=== PATIENT | male | born 1955 | race Asian ===

== ENCOUNTER → 2018-02-01 09:13 | Outpatient (CLI) | payer OTHER, SELFPAY ==
[2018-02-01 13:11] LABS: PSA,Total - Annual Screen 1.05 ng/mL (0.00-4.00)
[2018-02-02 15:12] LABS: Hep C Antibodies <0.1 s/co ratio (0.0-0.9)
== END ==
PROVIDERS: Family Provider Family Medicine Geriatric Medicine; PCP Family Medicine Geriatric Medicine; Visit Provider Family Medicine Geriatric Medicine
DX: I10 Essential (primary) hypertension (principal); Z12.5 Encounter for screening for malignant neoplasm of prostate; Z13.89 Encounter for screening for other disorder
CPT/HCPCS: 36415; 84153; 86803; G0103

== ENCOUNTER → 2018-02-18 15:07 | Outpatient (CLI) | payer OTHER, SELFPAY | PROVIDERS: Family Provider Family Medicine Geriatric Medicine; PCP Family Medicine Geriatric Medicine; Visit Provider Family Medicine Geriatric Medicine | DX: M81.0 Age-related osteoporosis without current pathological fracture (principal) | CPT/HCPCS: 77080 ==

== ENCOUNTER → 2019-01-31 09:00 | Outpatient (CLI) | payer OTHER, SELFPAY ==
[2019-02-01 10:51] LABS: PSA,Total - Annual Screen 1.42 ng/mL (0.00-4.00)
== END ==
PROVIDERS: Family Provider Family Medicine Geriatric Medicine; PCP Family Medicine Geriatric Medicine; Visit Provider Family Medicine Geriatric Medicine
DX: Z12.5 Encounter for screening for malignant neoplasm of prostate (principal)
CPT/HCPCS: 36415; 84153; G0103

== ENCOUNTER 2019-06-03 08:00 | Outpatient (RCR) | payer OTHER, SELFPAY ==
--- NOTE | 2019-06-06 19:16 | DS.PCM_ITS ---
Massage Therapy Discharge Summary: Discharge Date: 06/06/2019 Cholo was seen for a massotherapy evaluation on 02/08/2019 with the diagnosis of neck and low back pain. He was treated with Four sessions of massage therapy consisting of moderate to deep pressure soft tissue techniques, myofascial release and trigger point compression to his cervical, thoracic, lower back, upper extremities and lower extremities. Cholo responded well to the therapy by reporting decreased tension and pain throughout his head, neck, shoulders, lower back and hips. His goals for therapy were met throughout the treatment sessions. At this time this patient is being discharged from our care at [facility] facility.
== END 2019-06-03 19:00 | disposition home or self-care (01) ==
LOC: MASS 08:00
PROVIDERS: Family Provider Family Medicine Geriatric Medicine; PCP Family Medicine Geriatric Medicine; Referring Provider Family Medicine Geriatric Medicine; Visit Provider Family Medicine Geriatric Medicine
DX: M54.5 Low back pain (principal)
CPT/HCPCS: 97124

== ENCOUNTER → 2019-09-13 12:23 | Outpatient (CLI) | payer OTHER, SELFPAY ==
[2019-09-13 14:02] LABS: Anion Gap 6 (5-15); BUN 12 mg/dL (7-18); BUN/Creat Ratio 17.3 RATIO (10-20); Chloride 96 mmol/L (98-107); Creatinine, Serum 0.69 mg/dL (0.70-1.30); EST Glomerular Filtration Rate 122 mL/min (>60); Est Glom Filt Rate - Afr Amer 148 mL/min (>60); Glucose 78 mg/dL (74-106); Potassium 3.8 mmol/L (3.5-5.1); Sodium Level 133 mmol/L (136-145)
== END ==
PROVIDERS: PCP Family Medicine Geriatric Medicine; Visit Provider Family Medicine Geriatric Medicine
DX: I10 Essential (primary) hypertension (principal)
CPT/HCPCS: 36415; 80048

== ENCOUNTER → 2020-01-31 11:11 | Outpatient (CLI) | payer OTHER, SELFPAY ==
[2020-01-31 13:15] LABS: PSA,Total - Annual Screen 1.25 ng/mL (0.00-4.00); Thyroid Stim Hormone (TSH) 0.89 uIU/mL (0.358-3.74)
== END ==
PROVIDERS: PCP Family Medicine Geriatric Medicine; Visit Provider Family Medicine Geriatric Medicine
DX: I10 Essential (primary) hypertension (principal); Z12.5 Encounter for screening for malignant neoplasm of prostate
CPT/HCPCS: 36415; 80053; 84153; 84443; G0103

== ENCOUNTER → 2020-02-29 16:48 | Outpatient (CLI) | payer OTHER, SELFPAY ==
[2020-02-29 16:15] VITALS: BMI 19.5
--- NOTE | 2020-02-29 16:50 | EKG12_ITS ---
Test Reason : NEW DR LAWTON Blood Pressure : / mmHG Vent. Rate : 052 BPM Atrial Rate : 052 BPM P-R Int : 162 ms QRS Dur : 094 ms QT Int : 424 ms P-R-T Axes : 056 057 048 degrees QTc Int : 394 ms Sinus bradycardia Otherwise normal ECG Confirmed by SALEEM SELF, ARSENIO ([id number]), international editorial producer CARRIE LANDA ([id number]) on 03/01/2020 10:58:16 AM Referred By: Arsenio Lawton Confirmed By:ARSENIO LAWTON MD
== END ==
PROVIDERS: PCP Family Medicine Geriatric Medicine; Referring Provider Internal Medicine Cardiovascular Disease; Visit Provider Internal Medicine Cardiovascular Disease
DX: H81.10 Benign paroxysmal vertigo, unspecified ear (principal); I10 Essential (primary) hypertension; I49.1 Atrial premature depolarization
CPT/HCPCS: 93005

== ENCOUNTER → 2020-03-08 14:05 | Outpatient (CLI) | payer OTHER, SELFPAY ==
[2020-02-29 16:15] VITALS: BMI 19.5
== END ==
PROVIDERS: PCP Family Medicine Geriatric Medicine; Referring Provider Internal Medicine Cardiovascular Disease; Visit Provider Internal Medicine Cardiovascular Disease
DX: I49.1 Atrial premature depolarization (principal); I10 Essential (primary) hypertension
CPT/HCPCS: 93225; 93226

== ENCOUNTER → 2020-03-12 10:53 | Outpatient (CLI) | payer OTHER, SELFPAY ==
[2020-02-29 16:15] VITALS: BMI 19.5
--- NOTE | 2020-03-12 10:53 | ECHOD_ITS ---
Reason For Study: ARRHYTHMIA Procedure This was a 2D Doppler, Color Flow transthoracic echocardiogram. Exam performed in department. Left Ventricle Normal LV size. Left ventricular systolic function is normal. The estimated ejection fraction is 60 %. No evidence for diastolic dysfunction. No regional wall motion abnormalities noted. Right Ventricle Normal RV size. Normal systolic function. Atria Normal left atrium. Normal right atrium. Mitral Valve Normal mitral valve. Tricuspid Valve Normal tricuspid valve. Mild (1+) tricuspid valve insufficiency. Pulmonary artery systolic pressure is 26 mmHg. Aortic Valve Trisinus/trileaflet aortic valve. Mild focal aortic valve calcification. Mild (1+) aortic valve insufficiency. Pulmonic Valve Normal pulmonic valve. Great Vessels Mildly dilated aortic root. The pulmonary artery is normal size. Normal inferior vena cava. Pericardium/Pleural No pericardial effusion. MMode/2D Measurements & Calculations LVIDd: 4.1 cm IVSd: 0.92 cm LVOT diam: 2.0 cm LVIDs: 2.7 cm LVPWd: 0.86 cm LVOT area: 3.0 cm2 RVDd: 3.7 cm FS: 35.4 % Ao root diam: 4.1 cm LAV(MOD-bp): 38.9 ml LA A4 area: 14.7 cm2 LAV(MOD-bp) Indexed: 25.2 ml/m2 LAV(MOD-sp2): 45.9 ml LAV(MOD-sp4): 32.6 ml LA dimension(2D): 2.4 cm RA A4 area: 11.8 cm2 Time Measurements MV dec time: 0.21 sec Doppler Measurements & Calculations MV E max mu: 88.4 cm/sec Lat Peak E' Mu: 10.2 cm/sec Med Peak E' Mu: 5.0 cm/sec MV A max mu: 59.0 cm/sec E/E' lat: 8.7 E/E' med: 17.6 MV E/A: 1.5 MV V2 max: 81.3 cm/sec Ao V2 max: 112.3 cm/sec AI max mu: 415.7 cm/sec MV max P.6 mmHg Ao max P.1 mmHg AI max P.4 mmHg MV V2 mean: 48.1 cm/sec Ao V2 mean: 81.2 cm/sec AI dec slope: 172.1 cm/sec2 MV mean P.0 mmHg Ao mean P.9 mmHg AI P1/2t: 707.6 msec MV V2 VTI: 25.6 cm Ao V2 VTI: 24.3 cm MVA(VTI): 2.2 cm2 ENRIQUETA(I,D): 2.4 cm2 ENRIQUETA(V,D): 2.3 cm2 LV V1 max: 87.6 cm/sec SV(LVOT): 57.3 ml PA V2 max: 81.7 cm/sec LV V1 max P.1 mmHg LV V1 mean P.5 mmHg LV V1 mean: 56.9 cm/sec LV V1 VTI: 19.2 cm PI end-d mu: 84.9 cm/sec TR max mu: 233.9 cm/sec TR max P.3 mmHg Interpretation Summary Normal LV size. Left ventricular systolic function is normal. The estimated ejection fraction is 60 %. No evidence for diastolic dysfunction. Mild focal aortic valve calcification. Mild (1+) aortic valve insufficiency. Ordering Physician: Arsenio Lawton Referring Physician: SOPHIE MORENO Performed By: Renetta Warner
== END ==
PROVIDERS: PCP Family Medicine Geriatric Medicine; Referring Provider Internal Medicine Cardiovascular Disease; Visit Provider Internal Medicine Cardiovascular Disease
DX: I49.1 Atrial premature depolarization (principal)
CPT/HCPCS: 93306

== ENCOUNTER 2020-04-05 11:45 | Outpatient (RCR) | payer OTHER, SELFPAY ==
--- NOTE | 2019-08-01 15:02 | MASS.EVAL ---
Massage Therapy Evaluation: Initial Evaluation Date: 07/29/2019 SUBJECTIVE: Cholo is a 64 year old male who was referred to the [facility] facility for a massotherapy evaluation by Dr. Mike with the diagnosis of low back pain. Cholo presents today with the symptoms of pain and tension in his neck shoulders and back. OBJECTIVE: Upon observation Cholo has some posture issues with his head and shoulders forward from the neutral position in sitting and standing. After examination and palpation I found Cholo to have high muscle tension with tenderness and myofascial restrictions in his sub occipitals, levator scapulae, trapezius, rhomboids, scalenes, and thoracic paraspinals. His QL?s, lumbar paraspinals, piriformis, glute medius, glute minimus, quads, hamstrings and calves all had high tension with fascial restrictions and tender points. His right gastroc/soleus muscles were tender with ropey fibers in the central/medial aspect. The first treatment consisted of a one hour massage to his legs, hips, back and neck with myofascial release, muscle stripping, trigger point compression techniques. ASSESSMENT: I feel that Cholo is a good candidate for massotherapy at this time. He had a favorable response to the first treatment with reduction in his muscle aches, pain and tension. He also had improvement in his cervical flexibility and low back flexibility. PLAN: The plan of care was reviewed with the patient. The patient is to be seen on an as needed basis for a total of ten sessions with the recommendation of once every month for a one hour treatment.
--- NOTE | 2020-06-06 17:03 | MASS.DISCH ---
Massage Therapy Discharge Summary: Discharge Date: 06/06/2020 Cholo was seen for a massotherapy evaluation on 07/29/2019 with the diagnosis of low back pain. He was treated with eight sessions of massage therapy consisting of deep pressure soft tissue techniques, myofascial release and trigger point compression to his cervical, thoracic, lower back, lower extremities and hips. Cholo responded well to the therapy by reporting decreased tension and pain throughout his neck, shoulders, lower back and hips. His goals for therapy were met throughout the treatment sessions. At this time this patient is being discharged from our care at [facility] facility.
== END 2020-04-05 19:00 | disposition home or self-care (01) ==
LOC: MASS 11:45
PROVIDERS: Family Provider Family Medicine Geriatric Medicine; PCP Family Medicine Geriatric Medicine; Visit Provider Family Medicine Geriatric Medicine
DX: M54.5 Low back pain (principal)
CPT/HCPCS: 97124

== ENCOUNTER → 2021-02-01 08:55 | Outpatient (CLI) | payer OTHER, SELFPAY ==
[2020-02-29 16:15] VITALS: BMI 19.5
[2021-02-01 11:50] LABS: PSA,Total - Annual Screen 1.51 ng/mL (0.00-4.00)
== END ==
PROVIDERS: PCP Family Medicine Geriatric Medicine; Visit Provider Family Medicine Geriatric Medicine
DX: I10 Essential (primary) hypertension (principal); Z12.5 Encounter for screening for malignant neoplasm of prostate
CPT/HCPCS: 36415; 84153; G0103

== ENCOUNTER → 2021-04-19 09:43 | Outpatient (CLI) | payer OTHER, SELFPAY ==
--- NOTE | 2021-04-19 09:49 | CT_ITS ---
STUDY: CT CHEST WITHOUT CONTRAST REASON FOR EXAM: Male, 66 years old. LIPID STATUS. RADIATION DOSAGE (If Supplied By Facility): CTDIvol = ( 12.19 ) mGy, DLP = ( 195.04 ) mGycm TECHNIQUE: Transaxial imaging was performed without the administration of intravenous contrast material. Cardiac over read examination. Individualized dose optimization techniques were used for this CT. COMPARISON: None. FINDINGS: The lungs are normal. There is no demonstrated pleural abnormality. There are calcifications of the coronary arteries. Normal mediastinum. Normal hilar regions. Normal unenhanced pulmonary arteries. There is atherosclerotic calcification of the aortic arch . There is no demonstrated abnormality of the visualized upper abdomen. CT/Limited Chest CT w/CCTA IMPRESSION: Coronary calcification. The lungs are clear. Electronically Signed: Jacob Sibley MD at 10:26 EDT , Service support ,
[2021-04-19 09:55] VITALS: BP 153/80; PULSE 58; RESP 14; TEMP 36.7; O2SAT 100; BMI 19.7
--- NOTE | 2021-04-19 14:53 | CA.SCORE ---
Calcium Scoring Coronary Calcium Scoring: High-resolution Computed Tomographic imaging of the chest was performed on [04/19/2021], with particular attention paid to the coronary arteries. Images from the examination were analyzed for the presence and extent of coronary artery calcification , using coronary calcium quantification software. The patient tolerated the procedure well and there were no complications. The results of the coronary calcification analysis are provided below. Left main score 11.4 Left anterior descending artery 43.8 Left circumflex artery score 0 Right coronary artery score 0 Total Agatston score 55.2 [address] the patient between the 25th and 50th percentile ranking. The above is suggestive of mild atherosclerosis plaquing noted. Calcium Scoring Interpretation: 0 No identifiable atherosclerotic plaque. Very low cardiovascular disease risk. <5% chance of presence coronary artery disease A Negative Examination 1-10 Minimal Plaque burden. Significant coronary artery disease very unlikely. 11-100 Mild plaque burden. Likely mild or minimal coronary atherosclerosis. 101-400 Moderate plaque burden Moderate non-obstructive coronary artery disease highly likely. Over 400 Extensive plaque burden. High likelihood of at least one significant coronary stenosis (>50% diameter)
== END ==
PROVIDERS: PCP Family Medicine Geriatric Medicine; Referring Provider Internal Medicine Cardiovascular Disease; Visit Provider Internal Medicine Cardiovascular Disease
DX: I10 Essential (primary) hypertension (principal)
CPT/HCPCS: 75571; 76380

== ENCOUNTER → 2021-05-01 16:27 | Outpatient (CLI) | payer OTHER, SELFPAY | PROVIDERS: PCP Family Medicine Geriatric Medicine; Visit Provider Family Medicine Geriatric Medicine | DX: R68.83 Chills (without fever) (principal) | CPT/HCPCS: 87633; 87635; U0005; U0003 ==

== ENCOUNTER 2021-05-17 08:00 | Outpatient (RCR) | payer OTHER, SELFPAY ==
[2020-02-29 16:15] VITALS: BMI 19.5
--- NOTE | 2020-07-27 12:12 | MASS.EVAL ---
Massage Therapy Evaluation: Initial Evaluation Date: 07/27/2020 SUBJECTIVE: Cholo is a 51 year old male who was referred to the [facility] facility for a massotherapy evaluation by Dr. Mike with the diagnosis of low back pain. Cholo presents today with the symptoms of pain and tension in his neck, shoulders, and back. OBJECTIVE: After examination and palpation I found Cholo to have high muscle tension with tenderness and myofascial restrictions in his sub occipitals, levator scapulae, trapezius, rhomboids, scalenes, and paraspinals muscle group. His QL?s, lumbar paraspinals, piriformis, glute medius, glute minimus and hamstrings all had high tension with fascial restrictions and tender points. The first treatment consisted of a one hour massage to his full body with myofascial release, muscle stripping, trigger point compression techniques. ASSESSMENT: I feel that Cholo is a good candidate for massotherapy at this time. He had a favorable response to the first treatment with reduction in his muscle aches, pain and tension. He also had improvement in his cervical flexibility and low back flexibility. PLAN: The plan of care was reviewed with the patient. The patient is to be seen on an as needed basis for a total of ten sessions with the recommendation of once every month for a one hour treatment.
--- NOTE | 2021-06-19 15:17 | MASS.DISCH ---
Massage Therapy Discharge Summary: Discharge Date: 06/19/2021 Cholo was seen for a massotherapy evaluation on 07/27/2020 with the diagnosis of low back pain. He was treated with four sessions of massage therapy consisting of deep pressure soft tissue techniques, myofascial release and trigger point compression to his cervical, thoracic, lower back and hips. Cholo responded well to the therapy by reporting decreased tension and pain throughout his neck, shoulders, lower back, lower extremities and hips. His goals for therapy were met throughout the treatment sessions. At this time this patient is being discharged from our care at [facility] facility.
== END 2021-05-17 19:00 | disposition home or self-care (01) ==
LOC: MASS 08:00
PROVIDERS: PCP Family Medicine Geriatric Medicine; Referring Provider Family Medicine Geriatric Medicine; Visit Provider Family Medicine Geriatric Medicine
DX: M54.50 Low back pain, unspecified (principal)
CPT/HCPCS: 97124

== ENCOUNTER 2021-08-21 14:33 | Outpatient (CLI) | payer OTHER, SELFPAY ==
[2021-08-21 14:59] VITALS: BP 160/86; PULSE 68; RESP 16; TEMP 36.6; O2SAT 99; BMI 19.7
[2021-08-21] MEDS: 0.9% Saline Lock 10 ML Syringe IV (15:03)
[2021-08-21 15:33] VITALS: BP 132/84; PULSE 59; RESP 16; TEMP 36.6; O2SAT 100
[2021-08-21 16:27] VITALS: BP 139/83; PULSE 60; RESP 16; TEMP 36.4; O2SAT 100
== END 2021-08-21 23:59 | disposition home or self-care (01) ==
LOC: MS3OUT 14:33 → MS3 14:34
PROVIDERS: PCP Family Medicine Geriatric Medicine; Referring Provider Nurse Practitioner Adult Health; Visit Provider Nurse Practitioner Adult Health
DX: Z23 Encounter for immunization (principal); U07.1 COVID-19; I10 Essential (primary) hypertension
CPT/HCPCS: J7050; M0247; A4216; Q0247

== ENCOUNTER 2021-09-03 16:25 | Outpatient (CLI) | payer OTHER, SELFPAY | END 2021-09-03 23:59 | disposition home or self-care (01) | LOC: POLAB3 16:26 | PROVIDERS: PCP Family Medicine Geriatric Medicine; Visit Provider Family Medicine Geriatric Medicine | DX: N39.0 Urinary tract infection, site not specified (principal) | CPT/HCPCS: 87086 ==

== ENCOUNTER 2021-09-24 08:32 | Outpatient (CLI) | payer OTHER, SELFPAY ==
--- NOTE | 2021-09-24 08:47 | BD_ITS ---
STUDY: DUAL ENERGY X-RAY ABSORPTIOMETRY / DXA REASON FOR EXAM: Male, 66 years old. M810 TECHNIQUE: Bone Mineral Density (BMD) measurements of lumbar spine and bilateral hips were obtained. COMPARISON: Comparison is made with prior study dated 02/18/2018. FINDINGS: Lumbar Spine (L1-L4): g/cm2 (0.834) / T-score (-2.1) / Z-score (-1.4) Findings are suggestive of osteopenia with a high fracture risk. Left Femur Total: g/cm2 (0.715) / T-score (-2.1) / Z-score (-1.6) Left Femoral Neck: g/cm2 (0.594) / T-score (-2.5) / Z-score (-1.4) Right Femur Total: g/cm2 (0.754) / T-score (-1.8) / Z-score (-1.3) Right Femoral Neck: g/cm2 (0.602) / T-score (-2.4) / Z-score (-1.4) The T-Scores on the most recent prior examination were: Lumbar Spine (L1-L4): There has been improvement of bone density since the previous examination. Left Femur Total: which represents a worsening of 0.3%. Right Femur Total: which represents an improvement of 2.5%. BD/Dexa Bone Density Study IMPRESSION: The patient is considered osteopenic as outlined below according to World Raleigh Organization (WHO) criteria with a moderate fracture risk. There has been improvement of bone density since the previous examination. Reference Information: The T-score is the number of standard deviations above or below the standard which is normal for young adults at their peak bone mineral density. The World Health Organization (WHO) interprets the T-scores as follows: Above -1 Normal bone density Between -1 and -2.5 Osteopenia Equal to / or below -2.5 Osteoporosis As a practical clinical guideline, osteopenia may be graded as follows: Mild -1 through -1.5 Moderate -1.6 through -2.0 Severe -2.1 through -2.4 The Z-score is the number of standard deviations above or below age-matched controls. A Z-score of less than -1.5 would be considered abnormal. References: 1. NIH Osteoporosis and Related Bone Diseases www osteo.org 2. International Society for Clinical Densitometry www iscd.org 3. National Osteoporosis Foundation www nof.org Electronically Signed: Jacob Sibley MD at 8:28 EDT ,
== END 2021-09-24 23:59 | disposition home or self-care (01) ==
LOC: OPBD 08:33
PROVIDERS: PCP Family Medicine Geriatric Medicine; Visit Provider Family Medicine Geriatric Medicine
DX: M81.0 Age-related osteoporosis without current pathological fracture (principal)
CPT/HCPCS: 77080

== ENCOUNTER 2021-12-09 09:17 | Day surgery (SDC) | payer OTHER, SELFPAY ==
--- NOTE | 2021-12-09 09:19 | HP.PCM_ITS ---
History and Physical Date of Admission: 12/09/21 66-year-old man who presents for a screening colonoscopy. He has a past medical history of COVID-19, essential hypertension, BPPV, hypertension, PACs who presents for screening colonoscopy. He is not having problems with his bowels. He denies abdominal pain. He is not having chest pain or shortness of breath. He is an avid any numbness or weakness. He does not use any stool softeners on a daily basis. He has no family history of colon cancer. Medications ascorbic acid (vitamin C) 500 mg PO DAILY@0800 03/24/14 [History Confirmed 04/02/21] multivitamin with folic acid 1 tab PO DAILY 03/24/14 [History Confirmed 04/02/21] verapamil 240 mg PO DAILY 03/24/14 [History Confirmed 04/02/21] alendronate 70 mg tablet 70 mg PO QWEEK 06/19/17 [History Confirmed 04/02/21] calcium carbonate 600 mg (1,500 mg)-vitamin D3 400 unit tablet 1 tab PO BID tab 02/24/20 [History Confirmed 04/02/21] losartan 100 mg tablet 100 mg PO DAILY 02/24/20 [History Confirmed 04/02/21] Ejection fraction %: 60 to 64 PFSH Medical History BPPV (benign paroxysmal positional vertigo) Essential hypertension Hyperlipidemia Osteoporosis PAC (premature atrial contraction) Pharyngitis, acute Premature heartbeats Sinusitis, acute SOB (shortness of breath) Surgical History H/O hernia repair History of back surgery Family History Mother CVA (cerebral vascular accident) Hypertension Father CVA (cerebral vascular accident) Hypertension Sister Hypertension Social History Smoking Status: Never smoker alcohol intake: current alcohol intake frequency: holidays/special occasions only ROS Const Const: Negative for fatigue, weakness, headache(s), frequent falls, difficulty sleeping or excessive sweating Eyes Eyes: Negative for loss of peripheral vision, transient loss of vision, blurry vision, double vision or tunnel vision ENT ENT: Negative for headache(s), dizziness, Nosebleed/epistaxis or balance problems Cardio Chest Pain: No Palpitations: No Edema: None Muscle aches with walking: None Resp Respiratory: Negative for SOB with activity, SOB at rest, SOB orthopnea\SOB l alvaro down, Cough or paroxysmal nocturnal dyspnea GI GI: Negative nausea, vomiting, heartburn or black,tarry stools : Negative for hematuria Musc Musc: Negative for muscle aches/ myalgia, muscle weakness, joint pain or balance problems Skin Skin: Negative non-healing lesions, rash or unusual bruising Neuro Neuro: Negative for dizziness, lightheadedness, near syncope, syncope, orthostatic symptoms, frequent falls, headache(s), weakness, blurry vision, double vision or lack of coordination [place] Hematologic/Lymphatic: Negative for easy bleeding or easy bruising Endo Endo: Negative for fatigue, excessive sweating or increased thirst/drinking Psych Psych: Negative for anxiety or depression Allergy Allergy/Immunology: Negative for hives and Negative for rash Exam Const Appearance: cooperative, healthy appearing, no acute distress, well developed and well groomed Nutritional Appearance: average body habitus and well nourished Orientation: alert, awake and oriented x3 Head Head: normal to inspection, normocephalic and atraumatic Ears: hearing grossly normal bilaterally and external ears normal Nose: external nose normal, nares normal, nasal mucous membranes and turbinates normal, septum normal and no nasal discharge Face and Sinus: face symmetric Mouth: oral mucosae normal, tongue normal, oropharynx normal and moist mucous membranes Teeth and gingiva: dentition normal Throat: posterior oropharynx normal, tonsils normal and uvula midline Eyes General: appearance normal, both eyes and all related structures Eyelids: eyelids normal Conjunctivae: conjunctivae normal Pupils: PERRL, normal by confrontation and accommodation normal EOM: EOM intact bilaterally Neck Neck: normal visual inspection, trachea midline and no JVD JVD: +5 Carotids: normal carotid upstroke and bounding pulses Chest Chest inspection: normal inspection of the chest, symmetric chest movement and normal respiratory effort Auscultation: Bilateral: Clear to Auscultation Cardio Palpation: normal PMI Rate: regular rate Rhythm: regular rhythm Heart sounds: S1 normal, S2 normal and normal, physiologic split S2; Negative rub, gallop or murmur GI GI: normal to inspection, soft, no hepatosplenomegaly and bowel sounds present Neuro General: patient alert, patient awake, patient oriented x3, gait normal, moves all extremities and no focal sensory deficit Skin Skin: no rashes or lesions noted Extremities Pulses: Normal: Right Femoral Pulse, Left Femoral Pulse, Right Dorsalis Pedis Pulse, Left Dorsalis Pedis Pulse, Right Posterior Tibial Pulse, Left Posterior Tibial Pulse, Right Radial Pulse and Left Radial Pulse Lower Extremity Edema: None: Bilateral Musculoskel Musculoskeletal: No joint tenderness Psych Psychological: normal affect Assessment and Plan Assessment and Plan Screening colonoscopy He was explained alternatives, risk, benefits including not withstanding bleeding, infection, sepsis, perforation, need for emergent urgent . Have an ASA of 1.
[2021-12-09 09:49] VITALS: BP 135/81; PULSE 64; RESP 18; TEMP 36.5; O2SAT 100; BMI 19.6
[2021-12-09] MEDS: Lactated Ringers 1,000 ML 15 ML IV (10:28)
[2021-12-09 10:56] VITALS: BP 103/70; BP 135/81; PULSE 53; RESP 16; TEMP 36.1; O2SAT 100
[2021-12-09 11:01] VITALS: BP 103/68; BP 135/81; PULSE 52; RESP 16; O2SAT 100
[2021-12-09 11:06] VITALS: BP 107/69; BP 135/81; PULSE 51; RESP 18; O2SAT 100
[2021-12-09 11:11] VITALS: BP 107/71; BP 135/81; PULSE 51; RESP 16; TEMP 36.4; O2SAT 100
[2021-12-09 11:33] VITALS: BP 135/81
--- NOTE | 2022-04-01 06:32 | OP.COLON_ITS ---
Patient Name: Cholo Hopkins Procedure Date: 12/09/2021 10:23 AM Date of : 1955 Age: 66 Procedure: Colonoscopy Indications: Screening for colorectal malignant neoplasm Providers: DO Lurdes Shah MD: Baljinder Mike MD Medicines: Monitored Anesthesia Care Patient Profile: This is a 66 year old male. Refer to note in patient chart for documentation of history and physical. Last Colonoscopy: more than 10 years ago. Complications: No immediate complications. Procedure: Pre-Anesthesia Assessment: - Prior to the procedure, a History and Physical was performed, and patient medications and allergies were reviewed. The risks and benefits of the procedure and the sedation options and risks were discussed with the patient. All questions were answered and informed consent was obtained. Patient identification and proposed procedure were verified by the physician in the pre-procedure area. Mental Status Examination: alert and oriented. Airway Examination: normal oropharyngeal airway and neck mobility. Respiratory Examination: clear to auscultation. CV Examination: normal. Prophylactic Antibiotics: The patient does not require prophylactic antibiotics. Prior Anticoagulants: The patient has taken no previous anticoagulant or antiplatelet agents. After reviewing the risks and benefits, the patient was deemed in satisfactory condition to undergo the procedure. The anesthesia plan was to use moderate sedation / analgesia (conscious sedation). Immediately prior to administration of medications, the patient was re-assessed for adequacy to receive sedatives. The heart rate, respiratory rate, oxygen saturations, blood pressure, adequacy of pulmonary ventilation, and response to care were monitored throughout the procedure. The physical status of the patient was re-assessed after the procedure. After I obtained informed consent, the scope was passed under direct vision. Throughout the procedure, the patient's blood pressure, pulse, and oxygen saturations were monitored continuously. The Colonoscope was introduced through the anus and advanced to the terminal ileum. The colonoscopy was performed without difficulty. The patient tolerated the procedure well. The quality of the bowel preparation was good. Moderate Sedation: Moderate (conscious) sedation was personally administered by an anesthesia professional. The following parameters were monitored: oxygen saturation, heart rate, blood pressure, and response to care. Total physician intraservice time was 15 minutes. Scope In: 10:37:53 AM Scope Withdrawal Time 0 hours 9 minutes 44 seconds Scope Out: 10:52:24 AM Total Procedure Duration Time 0 hours 14 minutes 31 seconds Findings: The perianal and digital rectal examinations were normal. The colon (entire examined portion) appeared normal. No additional abnormalities were found on retroflexion. Impression: - The entire examined colon is normal. - No specimens collected. Recommendation: - Discharge patient to home. - Resume previous diet. - Continue present medications. - Repeat colonoscopy in 10 years for screening purposes. Procedure Code(s): --- Professional --- G0121, Colorectal cancer screening; colonoscopy on individual not meeting criteria for high risk CPT copyright 2017 [employer]. All rights reserved. The codes documented in this report are preliminary and upon medical records coder review may be revised to meet current compliance requirements. Valdo Will DO 12/09/2021 10:57:23 AM This report has been signed electronically. Number of Addenda: 1 Note Initiated On: 12/09/2021 10:23 AM Addendum Number: 1 Addendum Date: 04/01/2022 6:24:23 AM MAC was used as sedation for this procedure. Valdo Will DO 04/01/2022 6:24:29 AM This report has been signed electronically.
--- NOTE | 2022-04-01 06:33 | OP.CCLET_ITS ---
04/01/2022 Baljinder Mike MD [address] [place] [address] Re : Colonoscopy procedure for Cholo Sandeep Dear Dr. Mike This procedure was performed on Thursday, December 09, 2021. My impressions and recommendations are as follows: Impressions : - The entire examined colon is normal. - No specimens collected. Recommendations : - Discharge patient to home. - Resume previous diet. - Continue present medications. - Repeat colonoscopy in 10 years for screening purposes. My findings are described in the full procedure note, which is enclosed. If I can be of further assistance, please feel free to contact me at . Sincerely, Valdo Will DO 12/09/2021 10:57:23 AM This report has been signed electronically.
== END 2021-12-09 12:11 | disposition home or self-care (01) ==
LOC: EN 09:18 → AC 09:18
PROVIDERS: PCP Family Medicine Geriatric Medicine; Referring Provider Family Medicine Geriatric Medicine; Visit Provider Internal Medicine Gastroenterology
PROC: 0DJD8ZZ Inspection of Lower Intestinal Tract, Via Natural or Artificial Opening Endoscopic (ICD-10-PCS; CPT 45378; principal; 2021-12-09 10:25)
DX: Z12.11 Encounter for screening for malignant neoplasm of colon (principal); I10 Essential (primary) hypertension; Z79.899 Other long term (current) drug therapy; Z86.16 Personal history of COVID-19
CPT/HCPCS: 45378; J7120; J2405

== ENCOUNTER → 2022-02-21 | Outpatient (CLI) | payer OTHER, SELFPAY ==
[2022-02-21 10:25] LABS: Absolute Lymphocyte Count 1.39 X10^3/uL (0.83-4.51); Absolute Neutrophil Count 2.3 X10^3/uL (2.0-7.7); Basophil# 0.04 X10^3/uL; Eosinophil# 0.04 X10^3/uL; Hematocrit 42.1 % (40-54); Hemoglobin 14.2 g/dL (13.0-16.5); Lymphocyte # 1.39 X10^3/ul (0.83-4.51); Lymphocyte % 33.5 % (19-41); Mean Corp Hgb Conc 33.7 g/dL (32-36); Mean Corpuscular Hgb 30.3 pg (27.0-32.0); Mean Platelet Vol. 9.4 fl (6.2-12.0); Monocyte# 0.37 X10^3/uL; Monocyte% 8.9 % (0-10); NRBC Flagged by Analyzer 0 % (0-5); Neutrophil # 2.31 X10^3/uL (2.7-7.7); Neutrophil % 55.6 % (47-70); Platelet Count 275 K/mm3 (150-450); RBC Distribution Width CV 12.8 % (11.6-14.6); RBC Distribution Width SD 41.7 fl (35.1-43.9); Red Blood Count 4.68 M/mm3 (4.6-6.2); White Blood Count 4.2 K/mm3 (4.4-11.0)
[2022-02-21 10:49] LABS: Vitamin D,25 Hydroxy 22.2 ng/mL
[2022-02-21 11:04] LABS: ALB/GLOB Ratio 1.1 RATIO (0.9-2.4); AST(SGOT) 39 U/L (15-37); Alanine Aminotransfer ALT/SGPT 46 U/L (16-61); Albumin, Serum 3.7 g/dL (3.2-5.0); Alkaline Phosphatase 60 U/L (45-117); Anion Gap 5 (5-15); BUN 11 mg/dL (7-18); BUN/Creat Ratio 14.8 RATIO (10-20); Chloride 100 mmol/L (98-107); Creatinine, Serum 0.74 mg/dL (0.70-1.30); EST Glomerular Filtration Rate 112 mL/min (>60); Est Glom Filt Rate - Afr Amer 136 mL/min (>60); Globulin 3.3 g/dL (2.2-4.2); Glucose 80 mg/dL (74-106); PSA,Total - Annual Screen 1.46 ng/mL (0.00-4.00); Potassium 4.2 mmol/L (3.5-5.1); Sodium Level 136 mmol/L (136-145); Thyroid Stim Hormone (TSH) 1.06 uIU/mL (0.358-3.74)
== END | disposition home or self-care (01) ==
LOC: POLAB3 09:25
PROVIDERS: PCP Family Medicine Geriatric Medicine; Visit Provider Family Medicine Geriatric Medicine
DX: E55.9 Vitamin D deficiency, unspecified (principal); I10 Essential (primary) hypertension; Z12.5 Encounter for screening for malignant neoplasm of prostate
CPT/HCPCS: 36415; 80053; 82306; 84153; 84443; 85025; G0103

== ENCOUNTER → 2022-05-16 | Outpatient (CLI) | payer MEDICARE, SELFPAY | END | disposition home or self-care (01) | PROVIDERS: PCP Family Medicine Geriatric Medicine; Visit Provider Family Medicine Geriatric Medicine | DX: R68.83 Chills (without fever) (principal) | CPT/HCPCS: 87635; 87804; 87807; C9803; U0003; U0005 ==

== ENCOUNTER → 2022-06-24 | Outpatient (CLI) | payer MEDICARE, SELFPAY | END | disposition home or self-care (01) | LOC: PSN 12:37 | PROVIDERS: PCP Family Medicine Geriatric Medicine; Referring Provider Family Medicine Geriatric Medicine; Visit Provider Family Medicine Geriatric Medicine | DX: R68.83 Chills (without fever) (principal) | CPT/HCPCS: 87635; 87804; 87807; C9803; U0003; U0005 ==

== ENCOUNTER → 2022-10-01 | Outpatient (CLI) | payer MEDICARE, SELFPAY ==
--- NOTE | 2022-10-01 08:21 | BD_ITS ---
STUDY: DUAL ENERGY X-RAY ABSORPTIOMETRY / DXA REASON FOR EXAM: Male, 67 years old. M810 TECHNIQUE: Bone Mineral Density (BMD) measurements of lumbar spine and bilateral hips were obtained. COMPARISON: Comparison is made with prior examination of September 24, 2021. FINDINGS: Lumbar Spine (L1-L4): g/cm2 (0.832) / T-score (-2.2) / Z-score (-1.4) Findings are suggestive of osteopenia with a high fracture risk. Left Femur Total: g/cm2 (0.695) / T-score (-2.2) / Z-score (-1.7) Left Femoral Neck: g/cm2 (0.601) / T-score (-2.4) / Z-score (-1.4) Right Femur Total: g/cm2 (0.754) / T-score (-1.8) / Z-score (-1.3) Right Femoral Neck: g/cm2 (0.624) / T-score (-2.3) / Z-score (-1.2) The T-Scores on the most recent prior examination were: Lumbar Spine (L1-L4): There has been worsening of bone density since the previous examination. Left Femur Total: which represents a worsening of 2.7%. Right Femur Total: which represents no significant change. . BD/Dexa Bone Density Study IMPRESSION: The patient is considered osteopenic as outlined below according to World Raleigh Organization (WHO) criteria with a high fracture risk. There has been worsening of bone density since the previous examination. Reference Information: The T-score is the number of standard deviations above or below the standard which is normal for young adults at their peak bone mineral density. The World Health Organization (WHO) interprets the T-scores as follows: Above -1 Normal bone density Between -1 and -2.5 Osteopenia Equal to / or below -2.5 Osteoporosis As a practical clinical guideline, osteopenia may be graded as follows: Mild -1 through -1.5 Moderate -1.6 through -2.0 Severe -2.1 through -2.4 The Z-score is the number of standard deviations above or below age-matched controls. A Z-score of less than -1.5 would be considered abnormal. References: 1. NIH Osteoporosis and Related Bone Diseases www osteo.org 2. International Society for Clinical Densitometry www iscd.org 3. National Osteoporosis Foundation www nof.org Electronically Signed: Jacob Sibley MD at 9:24 EDT ,
== END | disposition home or self-care (01) ==
LOC: OPBD 08:16
PROVIDERS: PCP Family Medicine Geriatric Medicine; Referring Provider Family Medicine Geriatric Medicine; Visit Provider Family Medicine Geriatric Medicine
DX: M81.0 Age-related osteoporosis without current pathological fracture (principal)
CPT/HCPCS: 77080

== ENCOUNTER → 2022-11-12 | Outpatient (CLI) | payer MEDICARE, SELFPAY | END | disposition home or self-care (01) | LOC: PSN 11:56 | PROVIDERS: PCP Family Medicine Geriatric Medicine; Referring Provider Internal Medicine Cardiovascular Disease; Visit Provider Internal Medicine Cardiovascular Disease | DX: I49.1 Atrial premature depolarization (principal) | CPT/HCPCS: 93225; 93226 ==

== ENCOUNTER → 2022-11-21 | Outpatient (CLI) | payer MEDICARE, SELFPAY ==
[2022-11-21 17:47] LABS: AST(SGOT) 33 U/L (15-37); Alanine Aminotransfer ALT/SGPT 32 U/L (16-61); Albumin, Serum 3.5 g/dL (3.2-5.0); Alkaline Phosphatase 64 U/L (45-117); Anion Gap 7 (5-15); BUN 13 mg/dL (7-18); BUN/Creat Ratio 17.1 RATIO (10-20); Calcium,Total 8.5 mg/dL (8.5-10.1); Chloride 101 mmol/L (98-107); Creatinine, Serum 0.76 mg/dL (0.70-1.30); EST Glomerular Filtration Rate 109 mL/min (>60); Est Glom Filt Rate - Afr Amer 132 mL/min (>60); Globulin 3.4 g/dL (2.2-4.2); Glucose 124 mg/dL (74-106); Potassium 3.8 mmol/L (3.5-5.1); Protein, Total 6.9 g/dL (6.4-8.2); Sodium Level 136 mmol/L (136-145)
[2022-11-21 17:49] LABS: Vitamin D,25 Hydroxy 38.3 ng/mL
== END | disposition home or self-care (01) ==
LOC: LAB 16:32
PROVIDERS: PCP Family Medicine Geriatric Medicine; Referring Provider Internal Medicine Endocrinology, Diabetes & Metabolism; Visit Provider Internal Medicine Endocrinology, Diabetes & Metabolism
DX: M81.0 Age-related osteoporosis without current pathological fracture (principal); E55.9 Vitamin D deficiency, unspecified
CPT/HCPCS: 36415; 80053; 82306; 83970

== ENCOUNTER → 2023-02-23 | Outpatient (CLI) | payer MEDICARE, SELFPAY ==
[2023-02-23 11:03] LABS: Absolute Lymphocyte Count 1.64 X10^3/uL (0.83-4.51); Basophil# 0.04 X10^3/uL; Basophil% 0.8 % (0-1); Eosinophil# 0.02 X10^3/uL; Eosinophils% 0.4 % (0-5); Hematocrit 44.8 % (40-54); Hemoglobin 14.3 g/dL (13.0-16.5); Lymphocyte # 1.64 X10^3/ul (0.83-4.51); Lymphocyte % 32.3 % (19-41); Mean Corp Hgb Conc 31.9 g/dL (32-36); Mean Corpuscular Hgb 29.9 pg (27.0-32.0); Mean Corpuscular Volume 93.7 fL (80-94); Mean Platelet Vol. 10.3 fl (6.2-12.0); Monocyte# 0.41 X10^3/uL; Monocyte% 8.1 % (0-10); NRBC Flagged by Analyzer 0 % (0-5); Neutrophil # 2.95 X10^3/uL (2.7-7.7); Neutrophil % 58.2 % (47-70); Platelet Count 270 K/mm3 (150-450); RBC Distribution Width CV 12.2 % (11.6-14.6); RBC Distribution Width SD 42.5 fl (35.1-43.9); Red Blood Count 4.78 M/mm3 (4.6-6.2); White Blood Count 5.1 K/mm3 (4.4-11.0)
[2023-02-23 11:28] LABS: ALB/GLOB Ratio 1.1 RATIO (0.9-2.4); AST(SGOT) 35 U/L (15-37); Alanine Aminotransfer ALT/SGPT 43 U/L (16-61); Albumin, Serum 3.8 g/dL (3.2-5.0); Alkaline Phosphatase 68 U/L (45-117); Anion Gap 5 (5-15); BUN 12 mg/dL (7-18); BUN/Creat Ratio 15.5 RATIO (10-20); Calcium,Total 9.1 mg/dL (8.5-10.1); Chloride 101 mmol/L (98-107); Creatinine, Serum 0.78 mg/dL (0.70-1.30); EST Glomerular Filtration Rate 107 mL/min (>60); Est Glom Filt Rate - Afr Amer 129 mL/min (>60); Globulin 3.6 g/dL (2.2-4.2); Glucose 100 mg/dL (74-106); PSA,Total - Annual Screen 1.76 ng/mL (0.00-4.00); Protein, Total 7.4 g/dL (6.4-8.2); Sodium Level 136 mmol/L (136-145)
[2023-02-23 11:56] LABS: Follicle Stimulating Hormone 12.3 mIU/mL; Luteinizing Hormone 7.7 mIU/mL
[2023-02-23 12:52] LABS: Vitamin D,25 Hydroxy 31.4 ng/mL
[2023-02-27 11:09] LABS: Testosterone, % Free 2.37 % (1.50-4.20); Testosterone, Free 20.45 ng/dL (5.00-21.00); Testosterone, Total 863 ng/dL (264-916)
== END | disposition home or self-care (01) ==
PROVIDERS: Internal Medicine Endocrinology, Diabetes & Metabolism; Visit Provider Family Medicine Geriatric Medicine
DX: I10 Essential (primary) hypertension (principal); E55.9 Vitamin D deficiency, unspecified; Z12.5 Encounter for screening for malignant neoplasm of prostate
CPT/HCPCS: 36415; 80053; 82306; 83001; 83002; 84153; 84402; 84403; 84443; 85025; G0103

== ENCOUNTER → 2023-04-10 | Outpatient (CLI) | payer MEDICARE, SELFPAY | END | disposition home or self-care (01) | LOC: PSN 12:15 | PROVIDERS: PCP Family Medicine Geriatric Medicine; Referring Provider Family Medicine Geriatric Medicine; Visit Provider Family Medicine Geriatric Medicine | DX: R68.83 Chills (without fever) (principal) | CPT/HCPCS: 87635; 87804; 87807; C9803 ==

== ENCOUNTER 2023-04-23 09:16 | Outpatient (CLI) | payer MEDICARE, SELFPAY ==
[2023-04-23 09:21] VITALS: BP 153/63; PULSE 55; RESP 16; TEMP 36.4; O2SAT 98
[2023-04-23] MEDS: Zoledronic Acid 5 MG 100 ML 300 MG IV (09:41)
[2023-04-23] MEDS: 0.9% NaCl Peripheral Flush Adult/Peds IV (09:41)
[2023-04-23 10:07] VITALS: BP 150/57; PULSE 56; RESP 16; TEMP 36.6; O2SAT 100
== END 2023-04-23 09:17 | disposition home or self-care (01) ==
LOC: MEDOUTP 09:17
PROVIDERS: PCP Family Medicine Geriatric Medicine; Referring Provider Internal Medicine Endocrinology, Diabetes & Metabolism; Visit Provider Internal Medicine Endocrinology, Diabetes & Metabolism
DX: M85.80 Other specified disorders of bone density and structure, unspecified site (principal)
CPT/HCPCS: 96365; A4216; J3489

== ENCOUNTER → 2023-07-10 | Outpatient (CLI) | payer MEDICARE, SELFPAY ==
--- OUTSIDE RECORDS SUMMARY | 2023-07-10 08:51 | XMS RPT_ITS | CCD ---
Author Name Unknown Address [address] [place] [address] Organization [facility] Care Team Providers Care Rn Correctional Name Role Phone Tejal Blackmon LPN Unavailable [phone] Medications Completed/Discontinued Medications Medication Drug Class(es) Dates Sig (Normalized) Sig (Original) alendronic acid 70 mg oral tablet (1 source) Bisphosphonate Start: 05-31-2017 FOSAMAX 70 MG TABS as directed ALENDRONATE SODIUM [id number] Jonathan Ortega PA-C Problems Active Problems Problem Classification Problem Date Documented Da te Episodic/Chronic Cardiac dysrhythmias (1 source) Premature atrial contraction; Translations: [Atrial premature depolarization] Onset: 06-25-2012 06-25-2012 Chronic Essential hypertension (1 source) Hypertensive disorder; Translations: [Essential (primary) hypertension] Onset: 06-25-2012 06-25-2012 Chronic Past or Other Problems Problem Classification Problem Date Documented Da te Episodic/Chronic Joint disorders and dislocations; trauma-related (2 sources) Tear of lateral meniscus of knee; Translations: [Other tear of lateral meniscus, current injury, right knee] Resolved: 10-06-2011 10-06-2011 Episodic Other connective tissue disease (1 source) Iliotibial band friction syndrome; Translations: [Iliotibial band syndrome, right leg] 06-19-2011 Episodic Other lower respiratory disease (1 source) Cough; Translations: [Cough] Onset: 05-31-2017 05-31-2017 Episodic Results Test Name Value Interpretation Reference Range Facil ity Vital Signs Date Time Vital Sign Value Performing Clinician Faci lity 05-31-2017 10:08-0500 BMI (Body Mass Index) 20.25 kg/m2 Tejal Blackmon LPN [facility] Work Phone: 05-31-2017 10:08-0500 Body Temperature 98.2 [degF] Tejal Blackmon LPN [facility] Work Phone: 05-31-2017 10:08-0500 BP Diastolic 84 mm[Hg] Tejal Blackmon LPN [facility] Work Phone: 05-31-2017 10:08-0500 BP Systolic 122 mm[Hg] Tejal Blackmon LPN [facility] Work Phone: 05-31-2017 10:08-0500 Height 162.56 cm Tejal Blackmon LPN [facility] Work Phone: 05-31-2017 10:08-0500 Pulse (Heart Rate) 62 /min Tejal Blackmon LPN [facility] Work Phone: 05-31-2017 10:08-0500 Respiratory Rate 14 /min Tejal Blackmon LPN [facility] Work Phone: 05-31-2017 10:08-0500 Weight 53.52 kg Tejal Blackmon LPN [facility] Work Phone: Procedures Date Procedure Procedure Detail Performing Clinician Start: 07-02-2012 End: 07-12-2012 24 hour holter monitor rAsenio Lawton MD Start: 07-02-2012 End: 07-08-2012 Echocardiography Arsenio Lawton MD Start: 07-02-2012 End: 07-02-2012 Follow Up Appt Other Arsenio Lawton MD Plan of Treatment Date Care Activity Detail Author Start: 05-31-2017 End: 05-31-2017 Appointment Appointment [facility] Work Phone: Start: 07-02-2012 End: 07-02-2012 24 hour holter monitor 24 hour holter monitor [facility] Work Phone: Start: 07-02-2012 End: 07-02-2012 Echocardiography Echocardiogram (complete) [facility] Work Phone: Start: 07-02-2012 End: 07-02-2012 Follow Up Appt Other Follow Up Appt Other [facility] Work Phone: Additional Source Comments FOR RECORDS PERTAINING TO PATIENTS WHO ARE OR HAVE BEEN ENROLLED IN A CHEMICAL DEPENDENCY/SUBSTANCEABUSE PROGRAM, SOME INFORMATION MAY BE OMITTED. This clinical summary was aggregated from multiple sources. Caution should be exercised in using it in the provision of clinical care. This summary normalizes information from multiple sources, and as a consequence, information in this document may materially change the coding, format and clinical context of patient data. In addition, data may be omitted in some cases. CLINICAL DECISIONS SHOULD BE BASED ON THE PRIMARY CLINICAL RECORDS. [facility] [facility]. provides no warranty or guarantee of the accuracy or completeness of information in this document.
== END | disposition home or self-care (01) ==
LOC: PSN 08:18
PROVIDERS: PCP Family Medicine Geriatric Medicine; Referring Provider Internal Medicine Cardiovascular Disease; Visit Provider Internal Medicine Cardiovascular Disease
DX: I49.1 Atrial premature depolarization (principal)
CPT/HCPCS: 93225; 93226

== ENCOUNTER → 2024-03-01 | Outpatient (CLI) | payer MEDICARE, SELFPAY ==
[2024-03-01 10:22] LABS: Absolute Lymphocyte Count 1.85 X10^3/uL (0.83-4.51); Basophil# 0.05 X10^3/uL; Basophil% 0.9 % (0-1); Eosinophil# 0.03 X10^3/uL; Eosinophils% 0.6 % (0-5); Hematocrit 41.7 % (40-54); Hemoglobin 13.7 g/dL (13.0-16.5); Lymphocyte # 1.85 X10^3/ul (0.83-4.51); Mean Corp Hgb Conc 32.9 g/dL (32-36); Mean Corpuscular Hgb 29.4 pg (27.0-32.0); Mean Corpuscular Volume 89.5 fL (80-94); Mean Platelet Vol. 9.5 fl (6.2-12.0); Monocyte# 0.47 X10^3/uL; Monocyte% 8.6 % (0-10); NRBC Flagged by Analyzer 0 % (0-5); Neutrophil # 3.03 X10^3/uL (2.7-7.7); Neutrophil % 55.7 % (47-70); Platelet Count 287 K/mm3 (150-450); RBC Distribution Width CV 12.5 % (11.6-14.6); Red Blood Count 4.66 M/mm3 (4.6-6.2); White Blood Count 5.4 K/mm3 (4.4-11.0)
[2024-03-01 10:52] LABS: AST(SGOT) 32 U/L (15-37); Alanine Aminotransfer ALT/SGPT 35 U/L (16-61); Albumin, Serum 3.8 g/dL (3.2-5.0); Alkaline Phosphatase 70 U/L (45-117); Anion Gap 3 (5-15); BUN 11 mg/dL (7-18); BUN/Creat Ratio 14.9 RATIO (10-20); Calcium,Total 9.1 mg/dL (8.5-10.1); Chloride 98 mmol/L (98-107); Cholesterol 233 mg/dL (200); Creatinine, Serum 0.74 mg/dL (0.70-1.30); EST Glomerular Filtration Rate 112 mL/min (>60); Est Glom Filt Rate - Afr Amer 136 mL/min (>60); Globulin 3.7 g/dL (2.2-4.2); Glucose 96 mg/dL (74-106); High Density Lipoprotein 121 mg/dL; PSA,Total - Annual Screen 1.85 ng/mL (0.00-4.00); Potassium 4.3 mmol/L (3.5-5.1); Protein, Total 7.5 g/dL (6.4-8.2); Sodium Level 133 mmol/L (136-145); Triglycerides 64 mg/dL; Very Low Density Lipoprotein 13 mg/dL (5-40)
[2024-03-01 11:03] LABS: Vitamin D,25 Hydroxy 29.5 ng/mL
== END | disposition home or self-care (01) ==
LOC: POLAB3 10:02
PROVIDERS: PCP Family Medicine Geriatric Medicine; Visit Provider Family Medicine Geriatric Medicine
DX: I10 Essential (primary) hypertension (principal); E55.9 Vitamin D deficiency, unspecified; E78.5 Hyperlipidemia, unspecified; Z12.5 Encounter for screening for malignant neoplasm of prostate
CPT/HCPCS: 36415; 80053; 80061; 82306; 84153; 84443; 85025; G0103

== ENCOUNTER → 2024-10-04 | Outpatient (CLI) | payer MEDICARE, SELFPAY ==
--- NOTE | 2024-10-04 08:00 | BD_ITS ---
PROCEDURE: DEXA BONE DENSITY STUDY 10/04/2024 REASON FOR EXAM: ASSESS FOR MEDICATION M, age 69 y/o . Osteopenia.. TECHNIQUE: DXA scan of the lumbar spine and both hips, using make and model. REFERENCE LINKS: ISCD Adult Positions COMPARISON: Comparison is made with prior study dated October 01, 2022. FINDINGS: BMD and T-SCORES Lumbar spine: 0.860 g/cm2, T-Score -1.9 L1 through L4 Change from prior: Improvement by 3.3% Left femoral neck: 0.612 g/cm2, T-Score -2.3 Femoral neck comparison data not recommended for monitoring change. Left total hip: 0.756 g/cm2, T-Score -1.8 Change from prior: Improvement by 8.7% Right femoral neck: 0.620 g/cm2, T-Score -2.3 Femoral neck comparison data not recommended for monitoring change. Right total hip: 0.774 g/cm2, T-Score -1.7 Change from prior: Improved by 2.5% Fracture Risk Calculation: FRAX (10-year Fracture Risk) Score: FRAX scores should never be reported in a patient with osteoporosis on DEXA or for any patient that is on bone medication. The patient doesmeet the pharmacological treatment recommendations for prevention of osteoporosis BD/Dexa Bone Density Study IMPRESSION: OSTEOPENIA. Recommend follow-up as clinically warranted. Reading Location: [place] [address]
== END | disposition home or self-care (01) ==
LOC: OPBD 07:49
PROVIDERS: PCP Family Medicine Geriatric Medicine; Referring Provider Internal Medicine Endocrinology, Diabetes & Metabolism; Visit Provider Internal Medicine Endocrinology, Diabetes & Metabolism
DX: M81.0 Age-related osteoporosis without current pathological fracture (principal)
CPT/HCPCS: 77080

== ENCOUNTER → 2025-03-02 | Outpatient (CLI) | payer MEDICARE, SELFPAY ==
[2025-03-02 09:25] LABS: Hematocrit 41.9 % (40-54); Hemoglobin 14.0 g/dL (13.0-16.5); Immature Granulocytes Count 0.010 X10^3/uL (0.0-0.0); Mean Corp Hgb Conc 33.4 g/dL (32-36); Mean Corpuscular Volume 90.7 fL (80-94); Mean Platelet Vol. 9.6 fl (6.2-12.0); NRBC Flagged by Analyzer 0 % (0-5); Platelet Count 246 K/mm3 (150-450); RBC Distribution Width CV 12.7 % (11.6-14.6); RBC Distribution Width SD 41.6 fl (35.1-43.9); Red Blood Count 4.62 M/mm3 (4.6-6.2); White Blood Count 4.4 K/mm3 (4.4-11.0)
[2025-03-02 10:59] LABS: AST(SGOT) 35 U/L (<=37); Alanine Aminotransfer ALT/SGPT 23 U/L (<=46); Albumin, Serum 4.1 g/dL (3.4-4.8); Alkaline Phosphatase 61 U/L (40-129); Anion Gap 10 (5-15); BUN 13 mg/dL (4-19); BUN/Creat Ratio 19.0 RATIO (10-20); Calcium,Total 9.0 mg/dL (7.6-11.0); Carbon Dioxide 26.2 mmol/L (21.0-32.0); Chloride 100 mmol/L (98-108); Cholesterol 213 mg/dL (<=200); Globulin 2.7 g/dL (2.2-4.2); Glucose 97 mg/dL (70-99); Low Density Lipoprotein Calc. 91 mg/dL; PSA,Total - Annual Screen 2.11 ng/mL (0.02-4.00); Potassium 4.2 mmol/L (3.3-5.1); Triglycerides 61 mg/dL; Very Low Density Lipoprotein 12 mg/dL (5-40); Vitamin D,25 Hydroxy 38.1 ng/mL (30-100); cholesterol:hdl ratio screen 1.94
[2025-03-02 17:06] LABS: Xtra Tube Kwok EXTRA TUBE
== END | disposition home or self-care (01) ==
LOC: POLAB3 09:06
PROVIDERS: PCP Family Medicine Geriatric Medicine; Visit Provider Family Medicine Geriatric Medicine
DX: E55.9 Vitamin D deficiency, unspecified (principal); E78.5 Hyperlipidemia, unspecified; I10 Essential (primary) hypertension; Z12.5 Encounter for screening for malignant neoplasm of prostate
CPT/HCPCS: 36415; 80053; 80061; 82306; 84153; 84443; 85025; G0103